=== PATIENT | male | born 1970 | race Caucasian/White ===

== ENCOUNTER → 2018-08-21 | Day surgery (SDC) | payer OTHER ==
[~2018-08-21] MED LIST: ALBUTEROL SULFATE 2.5 MG/3 ML NEBU. NEB PRN; ATROPINE 0.5 MG/5 ML DISP.SYRIN. IV PRN; IV RINGERS SOLUTION,LACTATED 1,000 ML IV SCH; LEVO25TA4 PO; LIDOCAINE 2% PF Vial for OR 5 ML VIAL. ONE; NALOXONE 0.4 MG/ML VIAL. IV PRN; ONDANSETRON PF 4 MG/2 ML VIAL. IV PRN; PROPOFOL 40 ML IV ONE
[2018-08-21 14:46] VITALS: BP 149/99
== END | disposition home or self-care (01) ==
LOC: SURG 11:10
PROVIDERS: ATTEND Internal Medicine Gastroenterology
DX: Z12.11 Encounter for screening for malignant neoplasm of colon (principal); E03.9 Hypothyroidism, unspecified; K63.89 Other specified diseases of intestine; Z53.8 Procedure and treatment not carried out for other reasons; Z79.899 Other long term (current) drug therapy
CPT/HCPCS: 45378; J2704; J3010; J2001